=== PATIENT | female | born 1955 | race Caucasian/White ===

== ENCOUNTER 2016-07-19 18:49 | Emergency (ER) | payer OTHER ==
[2016-07-19 18:51] VITALS: BP 164/78; PULSE 82; RESP 24; TEMP 97.8; O2SAT 96
== END 2016-07-19 18:58 | disposition left against medical advice (07) ==
LOC: NED 18:49
DX: Z53.21 Procedure and treatment not carried out due to patient leaving prior to being seen by health care provider (principal)